=== PATIENT | male | born 1985 | race Caucasian/White ===

== ENCOUNTER 2018-01-10 17:57 | Emergency (ER) | payer OTHER ==
[~2018-01-10] VITALS: Ht 185.4 cm; Wt 99.2 kg
[2018-01-10 18:01] VITALS: TEMP 37.2; Ht 185.4 cm; Wt 99.2 kg
[2018-01-10] MEDS ORDERED: KETOROLAC TROMETHAMINE 30 MG/ML VIAL IV STA (18:41)
[2018-01-10 18:59] LABS: BASO % 0.2 %; BASO ABS # 0.02 K/uL (0-0.2); EOS % 0.7 %; EOS ABS # 0.08 K/uL (0-0.5); HEMATOCRIT 41.5 % (42-52); HEMOGLOBIN 15.2 g/dL (14.0-18.0); IG# 0.02 K/uL (0.00-0.02); LYMPH % 22.7 %; LYMPH ABS # 2.51 K/uL (1.2-3.4); MEAN CELL VOLUME 84.7 fL (80-100); MEAN CORPUSCULAR HGB CONC 36.6 g/dl (32-36); MEAN PLATELET VOLUME 10.5 fL (7.4-10.4); MONO ABS # 0.78 K/uL (0.11-0.59); NEUT % 69.2 %; NEUT ABS # 7.67 K/uL (1.4-6.5); PLATELET COUNT 223 K/uL (130-400); RED CELL DISTRIBUTION WIDTH CV 12.2 % (11.5-14.5); RED CELL DISTRIBUTION WIDTH SD 37.4 fL (36.4-46.3); WHITE BLOOD COUNT 11.08 K/uL (4.8-10.8)
--- NOTE | 2018-01-10 19:11 | DIAGNOSTIC IMAGING REPORT ---
CHEST ONE VIEW PORTABLE CLINICAL HISTORY: Evaluate Fever/Sepsis dyspnea COMPARISON STUDY: No previous studies for comparison. FINDINGS: The bones soft tissues and hemidiaphragms are normal. The cardiomediastinal silhouette is normal. The lungs are clear. The pulmonary vasculature is normal. IMPRESSION: Negative chest. The above report was generated using voice recognition software. It may contain grammatical, syntax or spelling errors. Electronically signed by: Mingo Russell M.D. 01/10/2018 7:10 PM Dictated Date/Time: 01/10/2018 7:09 PM
[2018-01-10 19:12] LABS: PTT PATIENT 30.3 SECONDS (21.0-31.0)
[2018-01-10 19:17] LABS: ALBUMIN 4.4 gm/dl (3.4-5.0); ALT/SGPT 33 U/L (12-78); AST/SGOT 27 U/L (15-37); BLOOD UREA NITROGEN 18 mg/dl (7-18); CALCIUM 8.9 mg/dl (8.5-10.1); CARBON DIOXIDE 27 mmol/L (21-32); GLUCOSE 86 mg/dl (70-99); LIPASE 106 U/L (73-393); POTASSIUM 3.9 mmol/L (3.5-5.1); SODIUM 138 mmol/L (136-145)
[2018-01-10 19:22] LABS: ALKALINE PHOSPHATASE 78 U/L (45-117); CKMB 5.1 ng/ml (0.5-3.6); TOTAL PROTEIN 8.1 gm/dl (6.4-8.2)
[2018-01-10 21:36] VITALS: BP 130/85; PULSE 75; O2SAT 98
--- NOTE | 2018-01-10 21:36 | EMERGENCY ROOM VISIT NOTE ---
History Report prepared by Terry: Jimena Wagner Under the Supervision of: Dr. Wyatt Kapoor D.O. First contact with patient: 18:23 Chief Complaint: CHEST PAIN Stated Complaint: SEVERE CHEST PAIN/SHORTNESS OF BREATH Nursing Triage Summary: Pt c/o severe chest pain in middle of chest. Started last night, worse today. Constant since last night. "Can't breathe, sweating constantly". Feel like "I'm going to have a heart attack" Fatigue and dizziness History of Present Illness The patient is a 32 year old male who presents to the Emergency Room with complaints of constant chest pain starting last night. He describes the pain as sharp. He has been SOB and diaphoretic today. His symptoms worsen with exertion. He reports fatigue and dizziness. He denies any leg pain or swelling. He denies any recent illness. He denies any medical problems. He does have a family history of heart disease. He does smoke. His kids have had stuffy noses recently. He denies any other sick contacts. Source of History: patient Onset: last night Position: chest Quality: sharp Timing: constant Modifying Factors (Worsening): exertion Associated Symptoms: + diaphoresis, + SOB, + fatigue Note: Pt reports dizziness. Pt denies leg pain/swelling. Review of Systems See HPI for pertinent positives & negatives. A total of 10 systems reviewed and were otherwise negative. Past Medical & Surgical Medical Problems: (1) No chronic problems Family History Heart disease Social History Smoking Status: Current Every Day Smoker Occupation Status: employed Current/Historical Medications No Active Prescriptions or Reported Meds Allergies Coded Allergies: No Known Allergies (Verified , 01/09/03) Physical Exam Vital Signs Date Time Temp Pulse Resp B/P (MAP) Pulse Ox O2 Delivery O2 Flow Rate FiO2 01/10/18 21:36 75 15 130/85 98 Room Air 01/10/18 21:06 65 17 98 01/10/18 21:01 142/74 01/10/18 20:06 76 17 98 01/10/18 20:01 130/73 01/10/18 20:00 71 13 98 01/10/18 19:21 74 01/10/18 19:01 129/85 01/10/18 18:57 68 22 142/78 97 Room Air 01/10/18 18:04 97 Room Air 01/10/18 18:01 37.2 79 16 147/77 98 Room Air Physical Exam CONSTITUTIONAL/VITAL SIGNS: Reviewed / noted above. GENERAL: Non-toxic in appearance. INTEGUMENTARY: Warm, dry, and [place]. HEAD: Normocephalic. EYES: without scleral icterus or trauma. ENT/OROPHARYNX: clear and moist. LYMPHADENOPATHY/NECK: Is supple without lymphadenopathy or meningismus. RESPIRATORY: Lungs clear and equal. CARDIOVASCULAR: Regular rate and rhythm. GI/ABDOMEN: Soft and nontender. No organomegaly or pulsatile mass. No rebound or guarding. Normal bowel sounds. EXTREMITIES: Warm and well perfused. BACK: No CVA tenderness. NEUROLOGICAL: Intact without focal deficits. PSYCHIATRIC: normal affect. MUSCULOSKELETAL: Normally developed with good muscle tone. Medical Decision & Procedures ER Provider Diagnostic Interpretation: X ray results and stated below per my interpretation and radiology interpretation. CHEST ONE VIEW PORTABLE CLINICAL HISTORY: Evaluate Fever/Sepsis dyspnea COMPARISON STUDY: No previous studies for comparison. FINDINGS: The bones soft tissues and hemidiaphragms are normal. The cardiomediastinal silhouette is normal. The lungs are clear. The pulmonary vasculature is normal. IMPRESSION: Negative chest. The above report was generated using voice recognition software. It may contain grammatical, syntax or spelling errors. Electronically signed by: Mingo Russell M.D. 01/10/2018 7:10 PM Dictated Date/Time: 01/10/2018 7:09 PM Laboratory Results 01/10/18 18:50 Red Blood Count 4.90, Mean Corpuscular Volume 84.7, Mean Corpuscular Hemoglobin 31.0, Mean Corpuscular Hemoglobin Concent 36.6, Mean Platelet Volume 10.5, Neutrophils (%) (Auto) 69.2, Lymphocytes (%) (Auto) 22.7, Monocytes (%) (Auto) 7.0, Eosinophils (%) (Auto) 0.7, Basophils (%) (Auto) 0.2, Neutrophils # (Auto) 7.67, Lymphocytes # (Auto) 2.51, Monocytes # (Auto) 0.78, Eosinophils # (Auto) 0.08, Basophils # (Auto) 0.02 01/10/18 18:50 Test 01/10/18 18:50 01/10/18 20:40 White Blood Count 11.08 K/uL (4.8-10.8) Red Blood Count 4.90 M/uL (4.7-6.1) Hemoglobin 15.2 g/dL (14.0-18.0) Hematocrit 41.5 % (42-52) Mean Corpuscular Volume 84.7 fL (80-100) Mean Corpuscular Hemoglobin 31.0 pg (25-34) Mean Corpuscular Hemoglobin Concent 36.6 g/dl (32-36) Platelet Count 223 K/uL (130-400) Mean Platelet Volume 10.5 fL (7.4-10.4) Neutrophils (%) (Auto) 69.2 % Lymphocytes (%) (Auto) 22.7 % Monocytes (%) (Auto) 7.0 % Eosinophils (%) (Auto) 0.7 % Basophils (%) (Auto) 0.2 % Neutrophils # (Auto) 7.67 K/uL (1.4-6.5) Lymphocytes # (Auto) 2.51 K/uL (1.2-3.4) Monocytes # (Auto) 0.78 K/uL (0.11-0.59) Eosinophils # (Auto) 0.08 K/uL (0-0.5) Basophils # (Auto) 0.02 K/uL (0-0.2) RDW Standard Deviation 37.4 fL (36.4-46.3) RDW Coefficient of Variation 12.2 % (11.5-14.5) Immature Granulocyte % (Auto) 0.2 % Immature Granulocyte # (Auto) 0.02 K/uL (0.00-0.02) Prothrombin Time 10.9 SECONDS (9.0-12.0) Prothromb Time International Ratio 1.0 (0.9-1.1) Activated Partial Thromboplast Time 30.3 SECONDS (21.0-31.0) Partial Thromboplastin Ratio 1.2 D-Dimer 290 ug/L FEU (0-500) Anion Gap 6.0 mmol/L (3-11) Est Creatinine Clear Calc Drug Dose 99.2 ml/min Estimated GFR () 82.5 Estimated GFR (Non- 71.2 BUN/Creatinine Ratio 13.9 (10-20) Calcium Level 8.9 mg/dl (8.5-10.1) Total Bilirubin 0.6 mg/dl (0.2-1) Direct Bilirubin 0.2 mg/dl (0-0.2) Aspartate Amino Transf (AST/SGOT) 27 U/L (15-37) Alanine Aminotransferase (ALT/SGPT) 33 U/L (12-78) Alkaline Phosphatase 78 U/L (45-117) Total Creatine Kinase 463 U/L (39-308) Creatine Kinase MB 5.1 ng/ml (0.5-3.6) Creatine Kinase MB Ratio 1.1 (0-3.0) Troponin I < 0.015 ng/ml (0-0.045) Total Protein 8.1 gm/dl (6.4-8.2) Albumin 4.4 gm/dl (3.4-5.0) Lipase 106 U/L (73-393) Urine Color DK YELLOW Urine Appearance CLEAR (CLEAR) Urine pH 5.0 (4.5-7.5) Urine Specific [place] 1.027 (1.000-1.030) Urine Protein NEG (NEG) Urine Glucose (UA) NEG (NEG) Urine Ketones 1+ (NEG) Urine Occult Blood NEG (NEG) Urine Nitrite NEG (NEG) Urine Bilirubin NEG (NEG) Urine Urobilinogen NEG (NEG) Urine Leukocyte Esterase NEG (NEG) Laboratory results as stated above per my review. Medications Administered Medications (Trade) Dose Ordered Sig/Raul Route Start Time Stop Time Status Last Admin Dose Admin Ketorolac Tromethamine (Toradol Inj) 30 mg NOW STAT IV 01/10/18 18:41 01/10/18 18:43 DC 01/10/18 18:54 30 MG ECG Per My Interpretation Indication: chest pain Rate (beats per minute): 75 Rhythm: normal sinus Findings: other (no ST elevation, no ST depression, normal axis, normal intervals) ED Course 1838: Previous medical records were reviewed. The patient was evaluated in room C9. A complete history and physical examination was performed. 1840: Toradol Inj 30 mg IV. 2134: On reevaluation, the patient is resting comfortably. I discussed the results and findings with the patient. He verbalized agreement of the treatment plan. He was discharged home. Medical Decision the differential was considered includes acute myocardial infarction, acute coronary syndrome, myocarditis, pericarditis, pericardial effusions /tamponad, esophageal perforation, thoracic aortic dissection, pulmonary embolism, pneumonia, pneumothorax, pancreatitis, shingles, acute cholecystitis, perforated abdominal viscus. This is a 32-year-old male who presents to the ED with a chief complaint of chest pain. The patient reports that his symptoms started last night. He reports shortness of breath all day as well as diaphoresis, feeling tired, dizziness and describes the pain as a sharp pain. The patient is a smoker. He denies any past medical history. His initial blood pressure was slightly elevated. His physical exam was unremarkable. An EKG shows a normal sinus rhythm at a rate of 75. Chest x-ray was negative for acute disease. CBC is unremarkable, d-dimer is negative, troponin is negative, complete metabolic panel is normal, lipase was normal and a urine revealed 1+ ketones. The patient was told the results of the test. He was given IV Toradol. He was felt stable for discharge and outpatient follow-up. Symptoms might be related to musculoskeletal cause. There does not appear to be any acute cardiopulmonary issues. Medication Reconcilliation Current Medication List: was personally reviewed by me Blood Pressure Screening Patient's blood pressure: Elevated blood pressure Blood pressure disposition: Elevated BP felt to be situational Impression Primary Impression: Chest wall pain Scribe Attestation The scribe's documentation has been prepared under my direction and personally reviewed by me in its entirety. I confirm that the note above accurately reflects all work, treatment, procedures, and medical decision making performed by me. Departure Information Dispostion Home / Self-Care Prescriptions No Active Prescriptions or Reported Meds Referrals No Doctor, Assigned (PCP) Patient Instructions Chest Pain - [facility], [facility] Additional Instructions Follow-up with your doctor for further care and evaluation in 1-2 days. Return to the emergency department for worsening or new symptoms or any concerns. You have been examined and treated today on an emergency basis only. This is not a substitute for, or an effort to provide, complete comprehensive medical care. It is impossible to recognize and treat all injuries or illnesses in a single emergency department visit. It is therefore important that you follow up closely with your doctor. Call as soon as possible for an appointment.
== END 2018-01-10 21:36 | disposition home or self-care (01) ==
LOC: C.EDB 17:58 → C.EDC 21:36
DX: R07.89 Other chest pain (principal); F17.210 Nicotine dependence, cigarettes, uncomplicated; R03.0 Elevated blood-pressure reading, without diagnosis of hypertension

== ENCOUNTER → 2018-04-12 | Outpatient (CLI) | payer OTHER | END | disposition home or self-care (01) | LOC: C.RDSM 10:30 | PROVIDERS: ATTEND Family Medicine Sports Medicine | DX: M25.561 Pain in right knee (principal); M54.2 Cervicalgia ==